=== PATIENT | female | born 1995 | race African-American/Black ===

== ENCOUNTER 2017-10-04 21:36 | Emergency (ER) | payer OTHER ==
[~2017-10-04] VITALS: Ht 167.6 cm; Wt 99.8 kg
[2017-10-04 21:37] VITALS: BP 116/73
--- NOTE | 2017-10-04 22:52 | NUR ---
PT LEFT WITHOUT ACI.
== END 2017-10-04 22:52 | disposition home or self-care (01) ==
LOC: ER 21:40
DX: L70.0 Acne vulgaris (principal)
CPT/HCPCS: 99281; A4606; Z7610; Z7502